=== PATIENT | female | born 1980 | race Caucasian/White ===

== ENCOUNTER 2020-07-29 21:28 | Emergency (ER) | payer OTHER, SELFPAY ==
[2020-07-29 21:33] VITALS: BP 163/78; PULSE 82; RESP 14; TEMP 36.6; O2SAT 100
--- NOTE | 2020-07-30 00:47 | PC.NURSE ---
Patient's name called in triage for updated vital signs, no answer at this time.
--- NOTE | 2020-07-30 01:03 | PC.NURSE ---
Patient's name called in triage multiple times to be taken back to room, no answer at this time.
== END 2020-07-30 01:15 | disposition left against medical advice (07) ==
DX: T63.301A Toxic effect of unspecified spider venom, accidental (unintentional), initial encounter (principal)
CPT/HCPCS: 99199